=== PATIENT | male | born 1955 | race African-American/Black ===

== ENCOUNTER → 2017-03-26 | Outpatient (CLI) | payer MEDICARE, MEDICAID ==
[~2017-03-26] MED LIST: ACET-2178 PO; IBUP-1653 PO
== END | disposition home or self-care (01) ==
LOC: RAD 12:31
PROVIDERS: ATTEND Neurological Surgery
DX: Z01.818 Encounter for other preprocedural examination (principal); R07.9 Chest pain, unspecified
CPT/HCPCS: 71010

== ENCOUNTER 2017-06-04 16:40 | Emergency (ER) | payer MEDICARE, MEDICAID ==
[~2017-06-04] VITALS: Ht 175.3 cm; Wt 93.0 kg
[~2017-06-04 16:40] MED LIST changes: +IBUP-1636 PO; -IBUP-1653 PO
[2017-06-04] MEDS ORDERED: SODIUM CHLORIDE 0.9% 1,000 ML IV ONE (17:07)
[2017-06-04 17:54] LABS: BASOPHILS % 0.9 % (0.0-2.0); EOSINOPHILS % 2.7 % (0.0-5.0); HEMATOCRIT. 30.6 % (42.0-52.0); HEMOGLOBIN. 10.3 g/dL (14.0-18.0); LYMPHOCYTES % 19.1 % (20.0-50.0); MEAN CORPUSCULAR HEMOGLOBIN 31.1 pg (28.0-32.0); MEAN CORPUSCULAR VOLUME 92.4 fL (80.0-94.0); MEAN PLATELET VOLUME 7.5 fl (7.4-10.4); MONOCYTES % 6.4 % (2.0-8.0); NEUTROPHILS % 70.9 % (40.0-76.0); PLATELET 222 x1000/uL (130-400); RED BLOOD CELL COUNT 3.31 mill/uL (4.7-6.1); RED CELL DISTRIBUTION WIDTH 13.7 % (11.6-14.6)
[2017-06-04 18:00] LABS: CHLORIDE 106 mEq/L (98-107); INR 1.1; PROTHROMBIN TIME 11.8 sec (9.4-11.6)
[2017-06-04 18:07] LABS: CARBON DIOXIDE 27 mEq/L (21-32)
[2017-06-04 19:57] LABS: CLARITY URINE CLEAR (CLEAR); COLOR URINE YELLOW (YELLOW); GLUCOSE URINE NEGATIVE (NEGATIVE); KETONES URINE NEGATIVE (NEGATIVE); LEUKOCYTE ESTERASE URINE NEGATIVE (NEGATIVE); NITRITE URINE NEGATIVE (NEGATIVE); OCCULT BLOOD URINE NEGATIVE (NEGATIVE); PROTEIN URINE NEGATIVE (NEGATIVE); SPECIFIC GRAVITY URINE 1.008 (1.005-1.030); UROBILINOGEN URINE 0.2 E.U./dL (0.2-1.0)
[2017-06-04 20:38] VITALS: BP 134/78
== END 2017-06-04 21:11 | disposition home or self-care (01) ==
LOC: ER 16:44
DX: R55 Syncope and collapse (principal); R03.0 Elevated blood-pressure reading, without diagnosis of hypertension
CPT/HCPCS: 36415; 71010; 80053; 81003; 85025; 85610; 93005; 96360; 96361; 99285; J7030

== ENCOUNTER 2021-12-27 12:33 | Emergency (ER) | payer MEDICARE, MEDICAID ==
[~2021-12-27] VITALS: Ht 185.4 cm; Wt 78.0 kg
[~2021-12-27 12:33] MED LIST changes: -ACET-2178 PO; -IBUP-1636 PO; +IBUP-1653 PO; +TOPUD PO
[2021-12-27] MEDS ORDERED: SODIUM CHLORIDE 0.9% 1,000 ML IV ONE (13:15)
[2021-12-27] MEDS ORDERED: MORPHINE SULFATE 4 MG/ML CPJ (NOT FOR IM USE) IV ONE (13:15)
[2021-12-27 13:18] LABS: BASOPHILS % 0.3 % (0.0-2.0); EOSINOPHILS % 0.9 % (0.0-5.0); HEMATOCRIT. 28.6 % (42.0-52.0); HEMOGLOBIN. 9.6 g/dL (14.0-18.0); LYMPHOCYTES % 13.1 % (20.0-50.0); MEAN CORPUSCULAR HEMOGLOBIN 30.2 pg (28.0-32.0); MEAN CORPUSCULAR VOLUME 90.1 fL (80.0-94.0); MEAN PLATELET VOLUME 7.9 fl (7.4-10.4); MONOCYTES % 5.6 % (2.0-8.0); NEUTROPHILS % 80.1 % (40.0-76.0); PLATELET 190 x1000/uL (130-400); RED BLOOD CELL COUNT 3.18 mill/uL (4.7-6.1); RED CELL DISTRIBUTION WIDTH 15.1 % (11.6-14.6)
[2021-12-27 13:27] LABS: INR 1.2; PROTHROMBIN TIME 12.4 sec (9.6-11.0)
[2021-12-27 13:28] LABS: CHLORIDE 112 mEq/L (98-107)
[2021-12-27] MEDS ORDERED: MAGN296S73 MT ×3 (16:07→16:29)
[2021-12-27 17:00] VITALS: BP 128/77
== END 2021-12-27 17:17 | disposition home or self-care (01) ==
LOC: ER 12:51
DX: R19.7 Diarrhea, unspecified (principal); R55 Syncope and collapse
CPT/HCPCS: 36415; 71045; 74176; 80053; 83880; 84484; 85025; 85610; 86850; 86900; 86901; 93005; 96361; 96374; 99285; J2270; J7030

== ENCOUNTER 2024-06-04 15:17 | Emergency (ER) | payer MEDICARE, MEDICAID ==
[~2024-06-04] VITALS: Ht 175.3 cm; Wt 73.0 kg
[~2024-06-04 15:17] MED LIST changes: +CHOL125C6 PO; +CILO100T3 PO; +FERR325T30 PO; +FINA5TAB11 PO; +FOLI-43 PO; +GABA-534 PO; -IBUP-1653 PO; +LEVO50TA8 PO; +LINA290C PO; +MELO-106 PO; +TAMS-11 PO; -TOPUD PO
[2024-06-04 15:22] VITALS: O2SAT 95
[2024-06-04] MEDS ORDERED: KETOROLAC 30MG/ML VIAL IV ONE (15:45)
[2024-06-04 17:43] LABS: HEMATOCRIT. 26.3 % (42.0-52.0); HEMOGLOBIN. 8.7 g/dL (14.0-18.0); MEAN CORPUSCULAR HEMOGLOBIN 33.1 pg (28.0-32.0); MEAN CORPUSCULAR HGB CONC 32.9 g/dL (31.0-37.0); MEAN CORPUSCULAR VOLUME 100.4 fL (80.0-94.0); MEAN PLATELET VOLUME 6.9 fl (7.4-10.4); PLATELET 172 x1000/uL (130-400); RED BLOOD CELL COUNT 2.62 mill/uL (4.7-6.1); RED CELL DISTRIBUTION WIDTH 13.9 % (11.6-14.6); WHITE BLOOD COUNT 3.8 x1000/uL (4.5-11.0)
[2024-06-04 17:44] LABS: DIFFERENTIAL COMMENT 1
[2024-06-04] MEDS: KETOROLAC 30MG/ML VIAL IV NR (17:45)
[2024-06-04 17:50] LABS: CHLORIDE 110 mEq/L (98-107); POTASSIUM 3.6 mEq/L (3.5-5.1); SODIUM 139 mEq/L (136-145)
[2024-06-04 17:51] LABS: CALCIUM 8.5 mg/dL (8.7-10.4); CARBON DIOXIDE 22 mEq/L (21-32)
[2024-06-04 17:56] LABS: CREATININE 1.8 mg/dL (0.6-1.3); GLUCOSE 105 mg/dL (70-105); INR 1.1; UREA NITROGEN BLOOD 16 mg/dL (9-23)
[2024-06-04 17:57] LABS: TROPONIN I HIGH SENSITIVITY 5 ng/L (3.0-53)
[2024-06-04 17:58] LABS: ALANINE AMINOTRANSFERASE 18 IU/L (10-49); ALBUMIN 3.6 g/dL (3.2-4.8); ASPARTATE AMINOTRANSFERASE 45 IU/L (<34); BILIRUBIN DIRECT 0.3 mg/dL (<=3.0); BILIRUBIN TOTAL 0.8 mg/dL (0.1-1.0); PROTEIN TOTAL 6.9 g/dL (6.0-8.3)
[2024-06-04 18:00] LABS: PLATELET ESTIMATE NORMAL
[2024-06-04 18:06] LABS: ETHANOL BLOOD < 10 mg/dL (<10)
[2024-06-04] MEDS ORDERED: POLY17PO3 MT (19:56)
[2024-06-04] MEDS ORDERED: TAMS-11 MT (19:56)
[2024-06-04] MEDS ORDERED: IBUP-2029 MT (19:56)
[2024-06-04 21:36] VITALS: BP 112/66; PULSE 73; RESP 20; TEMP 37.28076; O2SAT 98
== END 2024-06-04 22:01 | disposition home or self-care (01) ==
LOC: ER 15:17 → EDBEDREQ 17:07 → ER 22:01
DX: K59.00 Constipation, unspecified (principal); N20.0 Calculus of kidney; E03.9 Hypothyroidism, unspecified; Z79.899 Other long term (current) drug therapy
CPT/HCPCS: 80076; 80048; 80320; 83605; 83690; 85025; 85610; 84484; 36415; 74176; 96374; 99285; J1885; G0480

== ENCOUNTER 2025-06-24 18:47 | Inpatient (IN) | payer MEDICARE, MEDICAID ==
[~2025-06-24] VITALS: Ht 172.7 cm; Wt 85.3 kg
[2025-06-24 08:00] VITALS: BP 123/74; PULSE 63; RESP 18; TEMP 36.6; O2SAT 99
[~2025-06-24 18:47] MED LIST changes: +IBUP-1455 MT; +POLY17PO3 MT; -TAMS-11 PO; +TAMS-54 MT; +TAMS-54 PO
[2025-06-24 18:48] VITALS: O2SAT 98
[2025-06-24] MEDS: SODIUM CHLORIDE 0.9% 1,000 ML IV ONE (19:49)
[2025-06-24 20:04] LABS: BASOPHILS % 0.6 % (0.0-2.0); EOSINOPHILS % 0.7 % (0.0-5.0); HEMATOCRIT. 23.0 % (42.0-52.0); HEMOGLOBIN. 7.8 g/dL (14.0-18.0); LYMPHOCYTES % 13.0 % (20.0-50.0); MEAN PLATELET VOLUME 7.4 fl (7.4-10.4); MONOCYTES % 4.7 % (2.0-8.0); NEUTROPHILS % 81.0 % (40.0-76.0); PLATELET 183 x1000/uL (130-400); RED BLOOD CELL COUNT 2.37 mill/uL (4.7-6.1); RED CELL DISTRIBUTION WIDTH 13.7 % (11.6-14.6)
[2025-06-24 20:19] LABS: CREATININE 2.1 mg/dL (0.6-1.3); UREA NITROGEN BLOOD 15 mg/dL (9-23)
[2025-06-24 20:20] LABS: TROPONIN I HIGH SENSITIVITY 4 ng/L (3.0-53)
[2025-06-24 20:21] LABS: ASPARTATE AMINOTRANSFERASE 48 IU/L (<34); BILIRUBIN DIRECT 0.2 mg/dL (<=3.0); BILIRUBIN TOTAL 0.6 mg/dL (0.1-1.0); PROTEIN TOTAL 7.2 g/dL (6.0-8.3)
[2025-06-24 21:34] LABS: TROPONIN I HIGH SENSITIVITY 5 ng/L (3.0-53)
[2025-06-24] MEDS ORDERED: NALOXONE HCL 0.4MG/ML VIAL IV PRN (22:15)
[2025-06-24] MEDS ORDERED: ONDANSETRON HCL 4MG/2ML INJ IV PRN (22:15)
[2025-06-24 23:00] VITALS: BP 123/74; PULSE 63; RESP 18; TEMP 36.6; O2SAT 99
[2025-06-24] MEDS: SODIUM CHLORIDE 0.9% 1,000 ML IV SCH (23:32)
[2025-06-25 00:15] VITALS: BP 123/74; PULSE 63; RESP 18; TEMP 36.5848
[2025-06-25] MEDS ORDERED: LEVO75TA7 PO (03:22)
[2025-06-25] MEDS ORDERED: CELE-116 PO (03:22)
[2025-06-25] MEDS ORDERED: ALFU10TA46 PO (03:22)
[2025-06-25] MEDS ORDERED: PANT40TA51 PO (03:22)
[2025-06-25] MEDS ORDERED: FAMO40TA7 PO (03:22)
[2025-06-25] MEDS ORDERED: TRAM50TA3 PO (03:22)
[2025-06-25 04:00] VITALS: BP 131/75; PULSE 57; RESP 19; TEMP 36.6; O2SAT 96
[2025-06-25 07:46] LABS: CLARITY URINE CLEAR (CLEAR); COLOR URINE YELLOW (YELLOW); GLUCOSE URINE NEGATIVE (NEGATIVE); KETONES URINE NEGATIVE (NEGATIVE); LEUKOCYTE ESTERASE URINE TRACE (NEGATIVE); NITRITE URINE POSITIVE (NEGATIVE); OCCULT BLOOD URINE NEGATIVE (NEGATIVE); PH URINE 6.0 (4.5-8.0); PROTEIN URINE NEGATIVE (NEGATIVE); SPECIFIC GRAVITY URINE 1.011 (1.005-1.030); UROBILINOGEN URINE 1.0 E.U./dL (0.2-1.0)
[2025-06-25 08:00] VITALS: BP 133/87; PULSE 61; RESP 20; TEMP 36.7; O2SAT 97
[2025-06-25 08:13] LABS: BACTERIA URINE 4+; RBC URINE NONE SEEN /hpf (0-2); SQUAMOUS EPITHELIAL CELL URINE FEW /lpf (RARE/1+); YEAST URINE NONE SEEN
[2025-06-25 08:15] LABS: *AMPHETAMINES SCREEN URINE NEGATIVE (NEGATIVE)
[2025-06-25 08:16] LABS: *BARBITURATES SCREEN URINE NEGATIVE (NEGATIVE); *BENZODIAZEPINES SCREEN URINE NEGATIVE (NEGATIVE); *COCAINE SCREEN URINE NEGATIVE (NEGATIVE); CANNABINOID URINE SCREEN NEGATIVE (NEGATIVE); ECSTASY MDMA SCREEN URINE NEGATIVE (NEGATIVE); METHADONE URINE SCREEN NEGATIVE (NEGATIVE); OPIATES URINE SCREEN NEGATIVE (NEGATIVE); PHENCYCLIDINE URINE SCREEN NEGATIVE (NEGATIVE)
[2025-06-25] MEDS: THIAMINE HCL 100MG TABLET PO SCH (08:27)
[2025-06-25 12:00] VITALS: BP 148/89; PULSE 56; RESP 18; TEMP 36.6; O2SAT 98
[2025-06-25 12:34] LABS: BASOPHILS % 0.8 % (0.0-2.0); EOSINOPHILS % 1.8 % (0.0-5.0); HEMATOCRIT. 23.9 % (42.0-52.0); HEMOGLOBIN. 8.0 g/dL (14.0-18.0); LYMPHOCYTES % 23.8 % (20.0-50.0); MEAN PLATELET VOLUME 7.6 fl (7.4-10.4); MONOCYTES % 5.0 % (2.0-8.0); NEUTROPHILS % 68.6 % (40.0-76.0); PLATELET 181 x1000/uL (130-400); RED BLOOD CELL COUNT 2.44 mill/uL (4.7-6.1); RED CELL DISTRIBUTION WIDTH 14.0 % (11.6-14.6)
[2025-06-25 12:57] LABS: CREATININE 1.6 mg/dL (0.6-1.3)
[2025-06-25 12:58] LABS: UREA NITROGEN BLOOD 10 mg/dL (9-23)
[2025-06-25 12:59] LABS: PHOSPHORUS 2.7 mg/dL (2.5-4.9)
[2025-06-25 16:00] VITALS: BP 138/75; PULSE 60; RESP 20; TEMP 36.7; O2SAT 98
[2025-06-25 20:00] VITALS: BP 152/81; PULSE 65; RESP 20; TEMP 36.3; O2SAT 95
[2025-06-26] VITALS: BP 152/97; PULSE 61; RESP 20; TEMP 36.3; O2SAT 98
[2025-06-26 03:57] VITALS: BP 157/94; PULSE 60; RESP 20; TEMP 36.3; O2SAT 95
[2025-06-26] MEDS: HYDROCODONE/ACETAMINOPHEN 5/325MG TABLET PO PRN (06:05)
[2025-06-26 08:00] VITALS: BP 147/87; PULSE 59; RESP 20; TEMP 36.3; O2SAT 96
[2025-06-26 09:02] LABS: BASOPHILS % 0.7 % (0.0-2.0); EOSINOPHILS % 2.6 % (0.0-5.0); HEMATOCRIT. 27.0 % (42.0-52.0); HEMOGLOBIN. 9.2 g/dL (14.0-18.0); LYMPHOCYTES % 26.3 % (20.0-50.0); MEAN PLATELET VOLUME 7.5 fl (7.4-10.4); MONOCYTES % 5.6 % (2.0-8.0); NEUTROPHILS % 64.8 % (40.0-76.0); PLATELET 199 x1000/uL (130-400); RED BLOOD CELL COUNT 2.80 mill/uL (4.7-6.1); RED CELL DISTRIBUTION WIDTH 14.0 % (11.6-14.6)
[2025-06-26] MEDS: ENOXAPARIN 30MG/0.3ML SYR SUBCUT SCH (09:09)
[2025-06-26 09:34] LABS: CREATININE 1.4 mg/dL (0.6-1.3); UREA NITROGEN BLOOD 11 mg/dL (9-23)
[2025-06-26 09:36] LABS: PHOSPHORUS 2.4 mg/dL (2.5-4.9)
[2025-06-26 12:00] VITALS: BP 152/97; PULSE 61; RESP 20; TEMP 36.2; O2SAT 97
[2025-06-26] MEDS: CEFTRIAXONE 1GM/50ML 50 ML IV SCH (15:39)
[2025-06-26 20:00] VITALS: BP 143/90; PULSE 61; RESP 18; TEMP 36.8; O2SAT 98
[2025-06-27] VITALS: BP 158/100; PULSE 63; RESP 18; TEMP 36.5; O2SAT 98
[2025-06-27 04:00] VITALS: BP 171/103; PULSE 63; RESP 18; TEMP 36.3; O2SAT 97
[2025-06-27] MEDS: CLONIDINE 0.1MG TABLET PO PRN (05:02)
[2025-06-27 08:03] VITALS: BP 137/92; PULSE 59; RESP 18; TEMP 36.3; O2SAT 96
[2025-06-27 11:46] VITALS: BP 130/87; PULSE 61; RESP 18; TEMP 36.3; O2SAT 98
[2025-06-27] MEDS: LACTULOSE 20G/30ML UDC PO SCH (13:20)
[2025-06-27] MEDS: ACETAMINOPHEN 325MG TABLET PO PRN (15:44)
[2025-06-27 16:01] VITALS: BP 118/87; PULSE 61; RESP 20; TEMP 36.3; O2SAT 97
[2025-06-27 20:11] VITALS: BP 138/99; PULSE 58; RESP 20; TEMP 36.6; O2SAT 98
[2025-06-28] VITALS: BP 124/84; PULSE 58; RESP 20; TEMP 36.7; O2SAT 97
[2025-06-28 04:00] VITALS: BP 161/93; PULSE 58; RESP 20; TEMP 36.4; O2SAT 98
[2025-06-28 08:08] VITALS: BP 132/82; PULSE 62; RESP 18; TEMP 36.4; O2SAT 98
[2025-06-28 11:36] VITALS: BP 129/83; PULSE 65; RESP 19; TEMP 36.6; O2SAT 100
[2025-06-28 16:13] VITALS: BP 129/78; PULSE 60; RESP 18; TEMP 36.4; O2SAT 99
[2025-06-28 20:15] VITALS: BP 124/77; PULSE 61; RESP 20; TEMP 37.2; O2SAT 97
[2025-06-29] VITALS: BP 112/74; PULSE 59; RESP 20; TEMP 37.2; O2SAT 98
[2025-06-29 04:00] VITALS: BP 115/76; PULSE 61; RESP 20; TEMP 37.1; O2SAT 98
[2025-06-29 06:11] LABS: BASOPHILS % 0.8 % (0.0-2.0); EOSINOPHILS % 3.1 % (0.0-5.0); HEMATOCRIT. 28.9 % (42.0-52.0); HEMOGLOBIN. 9.8 g/dL (14.0-18.0); LYMPHOCYTES % 28.6 % (20.0-50.0); MEAN PLATELET VOLUME 7.9 fl (7.4-10.4); MONOCYTES % 7.5 % (2.0-8.0); NEUTROPHILS % 60.0 % (40.0-76.0); PLATELET 208 x1000/uL (130-400); RED BLOOD CELL COUNT 2.98 mill/uL (4.7-6.1); RED CELL DISTRIBUTION WIDTH 14.1 % (11.6-14.6)
[2025-06-29 06:30] LABS: CREATININE 1.5 mg/dL (0.6-1.3); UREA NITROGEN BLOOD 13 mg/dL (9-23)
[2025-06-29 06:32] LABS: PHOSPHORUS 3.3 mg/dL (2.5-4.9)
[2025-06-29 08:00] VITALS: BP 139/88; PULSE 86; RESP 18; TEMP 37.1; O2SAT 97
[2025-06-29 12:00] VITALS: BP 113/69; PULSE 62; RESP 18; TEMP 36.4; O2SAT 96
[2025-06-29 16:00] VITALS: BP 122/82; PULSE 70; RESP 20; TEMP 36.4; O2SAT 95
[2025-06-29 20:00] VITALS: BP 126/75; PULSE 58; RESP 20; TEMP 36.1; O2SAT 97
[2025-06-30] VITALS: BP 127/74; PULSE 57; RESP 20; TEMP 35.8; O2SAT 100
[2025-06-30 04:00] VITALS: BP 146/84; PULSE 58; RESP 20; TEMP 36.2; O2SAT 100
[2025-06-30 08:00] VITALS: BP 133/77; PULSE 57; RESP 17; TEMP 36.6; O2SAT 98
[2025-06-30] MEDS: LEVOTHYROXINE SODIUM 125MCG TABLET PO SCH (10:39)
[2025-06-30 12:00] VITALS: BP 118/67; PULSE 63; RESP 17; TEMP 36.7; O2SAT 98
[2025-06-30 12:17] LABS: FOLIC ACID (FOLATE) SERUM 11.81 ng/mL (>5.38); VITAMIN B12 SERUM 353 pg/mL (211-911)
[2025-06-30 16:00] VITALS: BP 125/67; PULSE 66; RESP 17; TEMP 36.7; O2SAT 98
[2025-06-30 20:00] VITALS: BP 118/72; PULSE 79; RESP 18; TEMP 36.7; O2SAT 100
[2025-06-30] MEDS: CYANOCOBALAMIN 1000MCG/ML VIAL IM SCH (20:27)
[2025-07-01] VITALS: BP 129/68; PULSE 62; RESP 17; TEMP 36.2; O2SAT 99
[2025-07-01 04:00] VITALS: BP 96/69; PULSE 73; RESP 20; TEMP 36.3; O2SAT 96
[2025-07-01 07:38] LABS: CREATININE 1.5 mg/dL (0.6-1.3); UREA NITROGEN BLOOD 15.0 mg/dL (9-23)
[2025-07-01 07:39] LABS: T4 FREE 0.25 ng/dL (0.89-1.76)
[2025-07-01 08:00] VITALS: BP 134/95; PULSE 56; RESP 18; TEMP 36.8; O2SAT 98
[2025-07-01 12:00] VITALS: BP 117/74; PULSE 62; RESP 18; TEMP 36.7; O2SAT 98
[2025-07-01 16:00] VITALS: BP 124/78; PULSE 63; RESP 18; TEMP 36.8; O2SAT 98
[2025-07-01 20:00] VITALS: BP 117/68; PULSE 73; RESP 20; TEMP 36.3; O2SAT 95
[2025-07-01] MEDS: ERGOCALCIFEROL 50000UNITS CAPSULE PO SCH (22:11)
[2025-07-02] VITALS: BP 112/62; PULSE 70; RESP 20; TEMP 36.2; O2SAT 97
[2025-07-02 04:00] VITALS: BP 138/84; PULSE 59; RESP 20; TEMP 36.2; O2SAT 97
[2025-07-02 08:00] VITALS: BP 138/79; PULSE 62; RESP 18; TEMP 36.1; O2SAT 98
[2025-07-02 11:37] LABS: CREATININE 1.2 mg/dL (0.6-1.3)
[2025-07-02 11:38] LABS: LDL CHOLESTEROL 154 mg/dL (5-100); TRIGLYCERIDE 121 mg/dL (0-150); UREA NITROGEN BLOOD 12 mg/dL (9-23)
[2025-07-02 11:39] LABS: PHOSPHORUS 2.6 mg/dL (2.5-4.9)
[2025-07-02 12:00] VITALS: BP 128/73; PULSE 60; RESP 19; TEMP 36.1; O2SAT 99
[2025-07-02 14:52] VITALS: BP 128/73; PULSE 60; RESP 19; TEMP 97
== END 2025-07-02 15:17 | DRG 871 ==
LOC: ER 18:47 → EDBEDREQ 21:39 → EDBEDREQTM 21:39 → ENRESERV 22:19 → 7WST 22:34 → 6EST 06-29 11:06
PROVIDERS: ADMIT Internal Medicine Nephrology; ATTEND Internal Medicine Nephrology
DX: A41.9 Sepsis, unspecified organism (principal); G82.50 Quadriplegia, unspecified; G93.41 Metabolic encephalopathy; N39.0 Urinary tract infection, site not specified; N17.9 Acute kidney failure, unspecified; E44.1 Mild protein-calorie malnutrition; G95.89 Other specified diseases of spinal cord; I73.9 Peripheral vascular disease, unspecified; E03.9 Hypothyroidism, unspecified; G83.9 Paralytic syndrome, unspecified; D53.9 Nutritional anemia, unspecified; I12.9 Hypertensive chronic kidney disease with stage 1 through stage 4 chronic kidney disease, or unspecified chronic kidney disease; N18.31 Chronic kidney disease, stage 3a; D63.1 Anemia in chronic kidney disease; J44.9 Chronic obstructive pulmonary disease, unspecified; G89.4 Chronic pain syndrome; R53.81 Other malaise; E55.9 Vitamin D deficiency, unspecified; R26.9 Unspecified abnormalities of gait and mobility; Z68.28 Body mass index [BMI] 28.0-28.9, adult; G90.89 Other disorders of autonomic nervous system; K59.00 Constipation, unspecified; M48.02 Spinal stenosis, cervical region; M48.061 Spinal stenosis, lumbar region without neurogenic claudication; D75.89 Other specified diseases of blood and blood-forming organs; E78.00 Pure hypercholesterolemia, unspecified; N40.0 Benign prostatic hyperplasia without lower urinary tract symptoms; Z53.20 Procedure and treatment not carried out because of patient's decision for unspecified reasons
CPT/HCPCS: 36415; 70551; 71045; 71111; 72141; 72146; 72148; 80048; 80061; 80076; 80305; 81003; 82024; 82140; 82306; 82533; 82550; 82607; 82746; 83036; 83735; 83880; 84100; 84439; 84443; 84484; 85025; 92610; 93005; 93970; 96360; 96361; 97116; 97162; 97166; 97530; 99285; A4606; J0696; J1650; J3420; J7030